=== PATIENT | male | born 1980 | race African-American/Black ===

== ENCOUNTER 2021-03-08 10:36 | Inpatient (IN) | payer OTHER ==
[2021-03-08 11:17] VITALS: BMI 28.5
[2021-03-08] MEDS ORDERED: P-EPHED 60MG/TRIPROLIDI 2.5MG TABLET PO PRN (11:48)
[2021-03-08] MEDS ORDERED: ACETAMINOPHEN 325 MG TABLET (FP) PO PRN (11:48)
[2021-03-08] MEDS ORDERED: LOPERAMIDE HCL 2 MG CAPSULE PO PRN (11:48)
[2021-03-08] MEDS ORDERED: guaiFENesin 200 MG/10 ML 10 ML UNIT-DOSE CUPS PO PRN (11:48)
[2021-03-08] MEDS ORDERED: MAG HYDROX/AL HYDROX/SIMETH 30 ML UNIT-DOSE CUP PO PRN (11:48)
[2021-03-08] MEDS ORDERED: NICOTINE 10 MG CARTRIDGE (INHALER) IH PRN (11:48)
[2021-03-08] MEDS ORDERED: IBUPROFEN 400 MG TABLET (FP) PO PRN (11:48)
[2021-03-08] MEDS ORDERED: MAGNESIUM HYDROX 2400MG/30ML ORAL SUSPENSION 30 ML CUP PO PRN (11:48)
[2021-03-08] MEDS ORDERED: MAGNESIUM CITRATE 300 ML BOTTLE PO PRN (11:48)
[2021-03-08] MEDS: NICOTINE 7 MG/24 HOURS TOPICAL PATCH TD SCH (13:24)
[2021-03-08] MEDS: hydrOXYzine PAMOATE 25 MG CAPSULE (FP) PO SCH ×3 (13:49→21:24)
[2021-03-08 18:43] LABS: HEMATOCRIT 41.5 % (35.4-49); HEMOGLOBIN 14.2 GM/dL (11.7-16.9); MCH 30.7 pg (25.7-33.7); MCHC 34.1 g/dl (32.0-35.9); MEAN CELL VOLUME 89.8 fl (80-96); PLATELET COUNT 298 10^3/uL (134-434); RBC 4.62 M/mm3 (4.00-5.60); RDW 14.3 % (11.9-15.9); WHITE BLOOD COUNT 5.1 K/mm3 (4.0-10.0)
[2021-03-08 18:47] LABS: BLOOD UREA NITROGEN 13.6 mg/dL (7-18)
[2021-03-08 18:48] LABS: ALBUMIN 3.8 g/dl (3.4-5.0)
[2021-03-08 18:51] LABS: CREATININE 1.2 mg/dL (0.55-1.3)
[2021-03-08 18:52] LABS: BILIRUBIN,TOTAL 0.3 mg/dL (0.2-1)
[2021-03-08 18:53] LABS: TOT PROT 7.8 g/dl (6.4-8.2)
[2021-03-08 19:56] LABS: SYPHILIS W/ RPR CONF REACTIVE (NONREACTIVE)
[2021-03-08] MEDS: THIAMINE HCL 100 MG TABLET (FP) PO SCH (21:24)
[2021-03-08] MEDS: traZODone HCL 50 MG TABLET (FP) PO SCH (21:25)
[2021-03-08] MEDS: OLANZapine 10 MG TABLET PO SCH (21:25)
[2021-03-08] MEDS ORDERED: MELATONIN 5 MG TABLETS PO SCH (22:00)
[2021-03-09] MEDS: hydrOXYzine PAMOATE 25 MG CAPSULE (FP) PO SCH ×5 (07:26→21:38)
[2021-03-09] MEDS ORDERED: PT OWN MED DRAWER 7, Y5N ONE ×2 (09:07→21:55)
[2021-03-09] MEDS: NICOTINE 7 MG/24 HOURS TOPICAL PATCH TD SCH (10:07)
[2021-03-09] MEDS: PRENATAL VITAMINS W/ FOLIC ACID TABLET (FP) PO SCH (10:07)
[2021-03-09] MEDS: DARUNAVIR ETHANOLATE 800 MG TAB PO SCH (17:51)
[2021-03-09] MEDS: RITONAVIR 100 MG TABLET PO SCH (17:52)
[2021-03-09] MEDS: EMTRICITABINE/TENOFOV ALAFENAM (DESCOVY) TABLET PO SCH (17:53)
[2021-03-09] MEDS: THIAMINE HCL 100 MG TABLET (FP) PO SCH (21:38)
[2021-03-09] MEDS: traZODone HCL 50 MG TABLET (FP) PO SCH (21:38)
[2021-03-09] MEDS: OLANZapine 10 MG TABLET PO SCH (21:38)
[2021-03-09] MEDS: BACITRACIN 0.9 GM PACKET TP SCH (21:39)
[2021-03-10] MEDS: hydrOXYzine PAMOATE 25 MG CAPSULE (FP) PO SCH ×5 (07:06→21:35)
[2021-03-10] MEDS: BACITRACIN 0.9 GM PACKET TP SCH ×2 (09:14→21:35)
[2021-03-10] MEDS: PRENATAL VITAMINS W/ FOLIC ACID TABLET (FP) PO SCH (09:14)
[2021-03-10] MEDS: NICOTINE 7 MG/24 HOURS TOPICAL PATCH TD SCH (09:14)
[2021-03-10 16:48] LABS: PH,URINE 8.5 (5.0-8.0); URINE APPEARANCE CLEAR; URINE BILIRUBIN NEGATIVE (NEGATIVE); URINE COLOR YELLOW; URINE GLUCOSE (UA) NEGATIVE (NEGATIVE); URINE KETONE NEGATIVE (NEGATIVE); URINE LEUK ESTERASE NEGATIVE (NEGATIVE); URINE NITRITE NEGATIVE (NEGATIVE); URINE PROTEIN NEGATIVE (NEGATIVE); URINE UROBILINOGEN 0.2 mg/dL (0.2-1.0)
[2021-03-10] MEDS ORDERED: PT OWN MED DRAWER 7, Y5N ONE ×2 (16:52→20:50)
[2021-03-10] MEDS: RITONAVIR 100 MG TABLET PO SCH (17:27)
[2021-03-10] MEDS: EMTRICITABINE/TENOFOV ALAFENAM (DESCOVY) TABLET PO SCH (17:29)
[2021-03-10] MEDS: DARUNAVIR ETHANOLATE 800 MG TAB PO SCH (17:30)
[2021-03-10] MEDS: OLANZapine 10 MG TABLET PO SCH (21:34)
[2021-03-10] MEDS: THIAMINE HCL 100 MG TABLET (FP) PO SCH (21:34)
[2021-03-10] MEDS: traZODone HCL 50 MG TABLET (FP) PO SCH (21:34)
[2021-03-11] MEDS: hydrOXYzine PAMOATE 25 MG CAPSULE (FP) PO SCH ×5 (06:16→21:33)
[2021-03-11] MEDS: BACITRACIN 0.9 GM PACKET TP SCH ×2 (09:16→21:32)
[2021-03-11] MEDS: NICOTINE 7 MG/24 HOURS TOPICAL PATCH TD SCH (09:16)
[2021-03-11] MEDS: PRENATAL VITAMINS W/ FOLIC ACID TABLET (FP) PO SCH (09:16)
[2021-03-11] MEDS ORDERED: PT OWN MED DRAWER 7, Y5N ONE ×2 (17:17→17:42)
[2021-03-11] MEDS: EMTRICITABINE/TENOFOV ALAFENAM (DESCOVY) TABLET PO SCH (17:18)
[2021-03-11] MEDS: DARUNAVIR ETHANOLATE 800 MG TAB PO SCH (17:19)
[2021-03-11] MEDS: RITONAVIR 100 MG TABLET PO SCH (17:19)
[2021-03-11] MEDS: traZODone HCL 50 MG TABLET (FP) PO SCH (21:32)
[2021-03-11] MEDS: OLANZapine 10 MG TABLET PO SCH (21:32)
[2021-03-11] MEDS: THIAMINE HCL 100 MG TABLET (FP) PO SCH (21:32)
[2021-03-12] MEDS: hydrOXYzine PAMOATE 25 MG CAPSULE (FP) PO SCH ×2 (06:16→10:21)
[2021-03-12 07:15] VITALS: BP 103/71; PULSE 79; TEMP 97.7
[2021-03-12] MEDS: NICOTINE 7 MG/24 HOURS TOPICAL PATCH TD SCH (10:21)
[2021-03-12] MEDS: PRENATAL VITAMINS W/ FOLIC ACID TABLET (FP) PO SCH (10:21)
[2021-03-12] MEDS: BACITRACIN 0.9 GM PACKET TP SCH (10:21)
[2021-03-12] MEDS ORDERED: hydrOXYzine PAMOATE 25 MG CAPSULE (FP) PO PRN (12:08)
== END 2021-03-12 12:46 | disposition left against medical advice (07) | DRG 770 ==
LOC: YASAS 10:36 → Y3E 11:42
PROVIDERS: ADMIT Allergy & Immunology; ATTEND Allergy & Immunology
PROC: HZ42ZZZ Group Counseling for Substance Abuse Treatment, Cognitive-Behavioral (ICD-10-PCS; principal; 2021-03-08)
DX: F15.20 Other stimulant dependence, uncomplicated (principal); F17.210 Nicotine dependence, cigarettes, uncomplicated; F19.259 Other psychoactive substance dependence with psychoactive substance-induced psychotic disorder, unspecified; F19.282 Other psychoactive substance dependence with psychoactive substance-induced sleep disorder; F19.24 Other psychoactive substance dependence with psychoactive substance-induced mood disorder; F32.9 Major depressive disorder, single episode, unspecified; G47.00 Insomnia, unspecified; K21.9 Gastro-esophageal reflux disease without esophagitis; Z86.19 Personal history of other infectious and parasitic diseases; Z87.19 Personal history of other diseases of the digestive system
CPT/HCPCS: 36415; 71046-TC-FY; 80053; 81003; 85027; 86593; 86780; 86803; 93005; 93010; C9803; U0003; U0005